=== PATIENT | female | born 2000 | race Caucasian/White ===

== ENCOUNTER → 2020-01-03 11:12 | Outpatient (BNVA) | payer MEDICAID, SELFPAY | PROVIDERS: Family Provider Family Medicine; Visit Provider Nurse Practitioner Family | DX: Z11.59 Encounter for screening for other viral diseases (principal) | CPT/HCPCS: 87635 ==

== ENCOUNTER → 2020-05-04 15:35 | Outpatient (BNVA) | payer MEDICAID, SELFPAY | PROVIDERS: Family Provider Family Medicine; Visit Provider Nurse Practitioner | DX: Z20.828 Contact with and (suspected) exposure to other viral communicable diseases (principal) | CPT/HCPCS: 87635 ==

== ENCOUNTER → 2020-08-06 14:56 | Outpatient (BNVA) | payer MEDICAID, SELFPAY | PROVIDERS: Family Provider Family Medicine; Visit Provider Nurse Practitioner Family | DX: G43.909 Migraine, unspecified, not intractable, without status migrainosus (principal); R04.0 Epistaxis; Z68.33 Body mass index [BMI] 33.0-33.9, adult | CPT/HCPCS: 80053; 82607; 83735; 84443; 85025 ==

== ENCOUNTER 2022-03-07 11:08 | Emergency (ER) | payer MEDICAID, SELFPAY ==
[2022-03-07 11:15] VITALS: BMI 1822.5
--- NOTE | 2022-03-07 11:24 | XRR_ITS ---
PROCEDURE INFORMATION: Exam: XR Left Knee Exam date and time: 03/07/2022 11:49 AM Age: 21 years old Clinical indication: Pain; Knee; Left; Additional info: Injury TECHNIQUE: Imaging protocol: Radiologic exam of the Left knee. Views: 3 views. COMPARISON: No relevant prior studies available. FINDINGS: Bones/joints: Normal. Soft tissues: Normal. XR/XR knee LT 3V* [id number] IMPRESSION: No acute findings.
--- NOTE | 2022-03-07 12:10 | ED_ITS ---
HPI - Extremity Problem General: Chief complaint: Extremity Injury, Lower Stated complaint: knee dislocation Time Seen by Provider: 03/07/22 11:14 Source: patient Mode of arrival: ambulatory Limitations: no limitations History of Present Illness: 21-year-old female who states that she was playing golf today and had a patellar dislocation to her left knee she states she has had this happen twice before she states she is able to relocate that she has had some pain states her pain is actually improved with walking her pains a 2 out of 10 she denies any other injuries Associated symptoms: Deny chest pain, fever(s) or rash Review of Systems Const: Denies: fever(s), chills, body aches or change in appetite Eyes: Denies: blurry vision or eye discomfort ENMT: Denies: throat pain or dental pain Card: Denies: chest pain Resp: Denies: dyspnea GI: Denies: abdominal pain, nausea, vomiting or diarrhea : Denies: dysuria Musc: Reports: extremity pain Skin/Breast: Denies: rash Neuro: Denies: headache(s) Psych: Denies: depression Aiden/Lymph: Denies: easy bruising All/Imm: Denies: urticaria PFSH ED PFSH: Medical History (Updated 03/07/22 @ 12:24 by Sidney Dinero MD) No pertinent past medical history Family History Grandfather Cancer Social History Smoking and tobacco status: never smoked Second hand smoke exposure: No Alcohol intake: former Desire information about alcohol rehabilitation?: No Counseling given: No Adopted: No Lives independently: No Household members: family Housing: House Marital status: Single Highest education level completed: High School Graduate service: No Current occupational status: employed Current occupation: plastics supervisor Current occupational exposures/hazards: No Pets and animals: No History of recent travel: No Special riky needs: No Female Reproductive History: Date of last menstrual period: 03/05/22 Physical Exam Const: COMMON NORMALS: no acute distress HENMT: COMMON NORMALS: normocephalic HEAD & SCALP: normocephalic Eye: COMMON NORMALS: Equal, round and reactive pupils present PUPIL: Yes Equal, round and reactive pupils present Neck/C-Spine: COMMON NORMALS: full ROM Chest: COMMONS NORMALS: normal inspection of the chest Resp: COMMON NORMALS: normal respiratory effort Cardio: COMMON NORMALS: regular rate RATE: regular rate GI: INSPECTION: Yes normal to inspection Extremity: NARRATIVE EXTREMITY EXAM: Slight tenderness to the left knee no swelling no dislocation patient is able ambulate Course Vital Signs: Vital signs: Vital Signs Oxygen Delivery Me thod 03/07/22 11:15 MDM - Extremity (Nontraumatic) Medical Decision Making Patient presents here with patella dislocation she was able to relocate it at home has some slight pain x-ray here is normal we will place her in an Uriel wrap she is to only ambulate as tolerated we will get her follow-up with orthopedics. Lab Data Radiology Impressions Knee X-Ray 03/07/22 11:24 IMPRESSION: No acute findings. Discharge Plan Discharge Patient Disposition: Home Clinical Impression: Closed patellar dislocation Condition: Stable Prescriptions: New Naprosyn 500 mg tablet 500 mg PO BID PRN (Reason: pain) Qty: 20 0RF No Action propranolol 20 mg tablet 20 mg PO BID Qty: 60 0RF ondansetron HCl [Zofran] 4 mg tablet 4 mg PO Q8H PRN (Reason: nausea and vomiting) Qty: 30 0RF Discharge Orders: Discharge ED (Routine); Ordered 03/07/22 Ordered By: Sidney Dinero Referrals: Justino Dykes DO [Physician] - 1-3 days Discharge Diet: Advance as tolerated Discharge Activity: Resume usual activity Patient Instructions: Patellar Dislocation (ED) Coding Level of Care Code ED Transfer Table Operator Helper for Sherrell Greenfield
--- NOTE | 2022-03-09 10:02 | DCPLANNER ---
Addendum entered by Dulce Srinivasan 03/12/22 15:05: Patient has a follow up appointment scheduled for 03.11.[address] Singh at ortho - patient did attend appointment. Original Note: commercial leasing manager had message to schedule a follow up appointment for patient with ortho. commercial leasing manager sent patients information to the front office staff at ortho. Patients information will be printed and reviewed. Clinic will call patient with appointment information.
== END 2022-03-07 12:23 | disposition home or self-care (01) ==
PROVIDERS: Emergency Provider Emergency Medicine
DX: S83.005A Unspecified dislocation of left patella, initial encounter (principal); X58.XXXA Exposure to other specified factors, initial encounter; Y93.53 Activity, golf
CPT/HCPCS: 73562; 99283

== ENCOUNTER → 2022-03-11 10:24 | Outpatient (BNVA) | payer MEDICAID, SELFPAY | PROVIDERS: Visit Provider Orthopaedic Surgery | DX: M23.8X2 Other internal derangements of left knee (principal); M22.02 Recurrent dislocation of patella, left knee | CPT/HCPCS: 73560 ==

== ENCOUNTER 2022-12-18 10:16 | Outpatient (CLI) | payer MEDICAID, SELFPAY | END 2022-12-18 10:17 | disposition home or self-care (01) | LOC: LAB 10:20 | PROVIDERS: Visit Provider Family Medicine | DX: Z13.6 Encounter for screening for cardiovascular disorders (principal); I48.91 Unspecified atrial fibrillation; R23.3 Spontaneous ecchymoses | CPT/HCPCS: 80053; 85025; 85610; 85730 ==

== ENCOUNTER → 2024-01-06 15:37 | Outpatient (BNVA) | payer OTHER, SELFPAY | PROVIDERS: PCP Family Medicine Adult Medicine; Visit Provider Nurse Practitioner Women's Health | DX: R30.0 Dysuria (principal) | CPT/HCPCS: 81000; 87086 ==

== ENCOUNTER → 2024-05-09 14:55 | Outpatient (BNVA) | payer OTHER, SELFPAY | PROVIDERS: PCP Family Medicine Adult Medicine; Visit Provider Nurse Practitioner Women's Health | DX: Z12.4 Encounter for screening for malignant neoplasm of cervix (principal) | CPT/HCPCS: 88175 ==

== ENCOUNTER → 2025-01-11 08:54 | Outpatient (BNVA) | payer OTHER, SELFPAY | PROVIDERS: PCP Family Medicine Adult Medicine; Visit Provider Clinical Nurse Specialist Adult Health | DX: N92.1 Excessive and frequent menstruation with irregular cycle (principal) | CPT/HCPCS: 84702 ==